=== PATIENT | female | born 1990 | race African-American/Black ===

== ENCOUNTER → 2017-01-05 | Outpatient (REF) | LOC: WSOH 13:27 | DX: Z01.89 Encounter for other specified special examinations (principal) ==

== ENCOUNTER → 2017-01-09 | Outpatient (REF) | LOC: WSOH 14:09 | DX: Z02.89 Encounter for other administrative examinations (principal) ==

== ENCOUNTER → 2017-02-13 | Outpatient (REF) | LOC: WSOH 09:02 | DX: Z11.1 Encounter for screening for respiratory tuberculosis (principal) ==